=== PATIENT | female | born 1980 | race Caucasian/White ===

== ENCOUNTER → 2018-05-12 14:23 | Outpatient (CLI) | payer OTHER, SELFPAY ==
--- NOTE | 2018-05-12 14:35 | US_ITS ---
HISTORY: IUD CHECK TECHNIQUE: Transvaginal pelvic ultrasound was performed. Grayscale, spectral and color flow Doppler evaluation of the adnexa. COMPARISON: None FINDINGS: The uterus is anteverted and appears normal in size measuring 9.4 x 4.9 x 5.6 cm in longitudinal, AP, and transverse dimensions. The uterine myometrium is unremarkable. IUD in place which appears in appropriate position. No endometrial thickening. The right ovary is enlarged secondary to a circumscribed cyst which measures approximately 4.4 x 4.2 cm. Right ovarian vascular flow. The right ovary in total measures approximately 5.1 x 4.4 x 4.5 cm. The left ovary appears normal in size measuring 3.7 x 2.3 x 1.3 cm and shows small follicular cysts. Ovarian flow in the left Small free pelvic fluid. US/Transvaginal Non- IMPRESSION: 1. Normal uterus. The IUD appears in good position. 2. Enlargement of the right ovary secondary to a 4.4 cm circumscribed cyst. Note that ovarian cysts of this size will not typically resolve spontaneously. 3. Normal left ovary. 4. Small free pelvic fluid. at 0223 Reported and signed by: Toñito Torres MD Electronically Signed: Toñito Torres, at 2:21 EST Tel , Service support ,
--- OUTSIDE RECORDS SUMMARY | 2018-07-07 14:01 | XMS RPT_ITS ---
:1980 Author Organization [facility] Care Team Providers Name Role Phone KEYA NOEL Attending Unavailable KEYA NOEL Referring Unavailable Homero Gilliland Primary Care Unavailable PROBLEMS PROBLEMS No Problem Records FoundPROCEDURES PROCEDURES No Procedure Records FoundRESULTS RESULTS TRANSVAGINAL Observed: 05/12/2018 Status: F Source: KIKA NON- 2:36 PM [facility] REPOSITORY [facility] Imaging Services [address] [place] [address] Transvaginal Non- MR#: [id number] Acct: [id number] Name: WILLA ELIAS Rep #: [id number] : 1980 F 37 From: Toñito Torres MD PCP: Homero Gilliland DO Status: REG CLI Study: Transvaginal Non- Date of Exam: 05/12/18 Exam# [id number] Ordering Dr: Keya Noel HISTORY: IUD CHECK TECHNIQUE: Transvaginal pelvic ultrasound was performed. Grayscale, spectral and color flow Doppler evaluation of the adnexa. COMPARISON: None FINDINGS: The uterus is anteverted and appears normal in size measuring 9.4 x 4.9 x 5.6 cm in longitudinal, AP, and transverse dimensions. The uterine myometrium is unremarkable. IUD in place which appears in appropriate position. No endometrial thickening. The right ovary is enlarged secondary to a circumscribed cyst which measures approximately 4.4 x 4.2 cm. Right ovarian vascular flow. The right ovary in total measures approximately 5.1 x 4.4 x 4.5 cm. The left ovary appears normal in size measuring 3.7 x 2.3 x 1.3 cm and shows small follicular cysts. Ovarian flow in the left Small free pelvic fluid. US/Transvaginal Non- IMPRESSION: 1. Normal uterus. The IUD appears in good position. 2. Enlargement of the right ovary secondary to a 4.4 cm circumscribed cyst. Note that ovarian cysts of this size will not typically resolve spontaneously. 3. Normal left ovary. 4. Small free pelvic fluid. at 0223 Reported and signed by: Toñito Torres MD Electronically Signed: Toñito Torres, at 2:21 EST Tel , Service support , CC: KEYA NOEL; Homero Gilliland DO [employer] Installer: Signed ALLERGIES ALLERGIES No Allergies Records FoundENCOUNTERS ENCOUNTERS ADMIT/DISCHARGE ACCOUNT ADMITTING ENCOUNTER LOCATION SOURCE NUMBER CLASS 05/12/2018 [id number] Ambulatory Kika Kika 2 [facility] ing:US Repository PAYERS PAYERS ENCOUNTER GUARANTOR PAYER SUBSCRIBER SOURCE 05/12/2018 WILLA ELIAS903 Primary SAGE CALDERON Insurance:[facility] BIRDDOB: [facility] [id number] [id number] [address]Eus: [phone] Number: Repository [phone] () [id number] Date:[id number] [address]GL: 05/12/2018 Secondary NOT GIVENUNK Kika Insurance:SELF PAY [facility] Number: Effective Repository Date:2018-05-12
== END ==
PROVIDERS: Family Provider Family Medicine; PCP Family Medicine; Referring Provider Internal Medicine Gastroenterology; Visit Provider Internal Medicine Gastroenterology
DX: T83.32XD Displacement of intrauterine contraceptive device, subsequent encounter (principal); R10.2 Pelvic and perineal pain; N39.0 Urinary tract infection, site not specified
CPT/HCPCS: 76830; 93976

== ENCOUNTER → 2021-01-13 17:00 | Outpatient (CLI) | payer OTHER, SELFPAY ==
--- NOTE | 2021-01-13 16:39 | BI_ITS ---
MAMMOGRAPHY - BILATERAL SCREENING REASON FOR EXAM: Female, 40 years old. Routine annual screening examination. PERTINENT HISTORY: TECHNIQUE: Digital bilateral breast laura (3D mammographic acquisition) in the CC and MLO projections. 2-D mediolateral oblique (MLO) and craniocaudad (CC) views of both breasts were obtained. CAD: Full Field Digital Mammography with Computer Added Detection was performed. COMPARISON: Previous mammogram obtained on 10/23/2014 FINDINGS: Breast Composition: Dense There are no dominant masses or suspicious calcifications. No other significant abnormalities are identified. BI/SCRN MAMM (CAD)W/LAURA BILAT IMPRESSION: Stable bilateral screening mammogram. Yearly follow-up mammogram recommended. (A) ASSESSMENT CATEGORY: BIRADS Category 1: Negative. A letter regarding these results will be sent to the patient by the facility within 30 days. Approximately 10% of breast cancers are not detected by mammography. A normal mammogram should not delay biopsy of a clinically suspicious abnormality. [id number] Electronically Signed: Alex Gonzalez DO at 15:30 EDT Tel , Service support ,
== END ==
PROVIDERS: PCP Family Medicine; Referring Provider Family Medicine; Visit Provider Family Medicine
DX: Z12.31 Encounter for screening mammogram for malignant neoplasm of breast (principal)
CPT/HCPCS: 77063; 77067

== ENCOUNTER → 2021-03-24 09:28 | Outpatient (CLI) | payer OTHER, SELFPAY ==
--- NOTE | 2021-03-24 09:33 | US_ITS ---
STUDY: ULTRASOUND BREAST - LEFT REASON FOR EXAM: Female, 40 years old. Palpable lump left breast. TECHNIQUE: Axial and longitudinal images of the LEFT breast were performed with a high resolution ultrasound transducer. # OF IMAGES: 9 COMPARISON: Comparison is made with prior mammogram dated 01/13/2021. FINDINGS: LEFT Breast: The upper portion of the left breast was examined by ultrasound. There is evidence of dense fibroglandular tissue. No solid or cystic mass lesion is seen. US/Breast Limited Unilateral IMPRESSION: Dense fibroglandular tissue. No sonographic abnormality is seen. ASSESSMENT CATEGORY: BIRADS Category 1: Negative. A letter regarding these results will be sent to the patient by the facility within 30 days. Electronically Signed: Newton Funes MD at 10:52 EDT , Service support ,
== END ==
PROVIDERS: PCP Family Medicine; Referring Provider Obstetrics & Gynecology; Visit Provider Obstetrics & Gynecology
DX: N63.20 Unspecified lump in the left breast, unspecified quadrant (principal)
CPT/HCPCS: 76642

== ENCOUNTER → 2022-01-14 | Outpatient (CLI) | payer OTHER, SELFPAY ==
--- NOTE | 2022-01-14 09:05 | BI_ITS ---
MAMMOGRAPHY - BILATERAL SCREENING 3-D TOMOSYNTHESIS REASON FOR EXAM: Female, 41 years old. Annual screening mammogram. PERTINENT HISTORY: No significant family history. TECHNIQUE: 2-D mammograms and 3-D Tomosynthesis of the breast (s) were performed. CAD was performed. COMPARISON: 01/13/2021, 10/23/2014. FINDINGS: The breast composition is heterogeneously dense that can obscure small breast masses. Stable scattered benign calcifications bilaterally. No dense spiculated masses or suspicious microcalcifications are identified. No architectural distortion is identified. There is no skin thickening or retraction. BI/SCRN MAMM (CAD)W/LAURA BILAT IMPRESSION: No interval change and no mammographic signs of malignancy. Routine yearly mammograms recommended. ASSESSMENT CATEGORY: BIRADS Category 2: Benign. A letter regarding these results will be sent to the patient by the facility within 30 days. FOLLOW UP RECOMMENDATION: Yearly follow up mammogram recommended. (A) Approximately 10% of breast cancers are not detected by mammography. A normal mammogram should not delay biopsy of a clinically suspicious abnormality. Electronically Signed: Bernard Grande MD at 15:28 EDT ,
== END | disposition home or self-care (01) ==
LOC: OPBI 09:04
PROVIDERS: PCP Family Medicine; Referring Provider Obstetrics & Gynecology; Visit Provider Obstetrics & Gynecology
DX: Z12.31 Encounter for screening mammogram for malignant neoplasm of breast (principal)
CPT/HCPCS: 77063; 77067

== ENCOUNTER → 2023-02-04 | Outpatient (CLI) | payer OTHER, SELFPAY ==
--- NOTE | 2023-02-04 10:05 | BI_ITS ---
MAMMOGRAPHY - BILATERAL SCREENING REASON FOR EXAM: Female, 42 years old. Routine annual screening examination. PERTINENT HISTORY: Non-contributory. TECHNIQUE: Digital bilateral breast laura (3D mammographic acquisition) in the CC and MLO projections. 2-D mediolateral oblique (MLO) and craniocaudad (CC) views of both breasts were obtained. CAD: Full Field Digital Mammography with Computer Added Detection was performed. COMPARISON: Comparison is made with prior study dated January 14, 2022 and January 13, 2021. FINDINGS: Breast Composition: The breasts are heterogeneously dense, which may obscure small masses. There is a 1 cm x 1.3 cm well-defined nodule in the upper lateral aspect of the left breast. Correlation with ultrasound is recommended. No other significant abnormalities are identified. BI/SCRN MAMM (CAD)W/LAURA BILAT IMPRESSION: 1 cm x 1.3 cm well-defined nodule in the upper lateral aspect of the left breast. Correlation with ultrasound is recommended. ASSESSMENT CATEGORY: BIRADS Category 0: Incomplete. Need additional imaging evaluation. A letter regarding these results will be sent to the patient by the facility within 30 days. Approximately 10% of breast cancers are not detected by mammography. A normal mammogram should not delay biopsy of a clinically suspicious abnormality. [id number] Electronically Signed: Newton Funes MD at 9:58 EDT ,
== END | disposition home or self-care (01) ==
LOC: OPBI 10:02
PROVIDERS: PCP Family Medicine; Referring Provider Obstetrics & Gynecology; Visit Provider Obstetrics & Gynecology
DX: Z12.31 Encounter for screening mammogram for malignant neoplasm of breast (principal)
CPT/HCPCS: 77063; 77067

== ENCOUNTER → 2023-02-16 | Outpatient (CLI) | payer OTHER, SELFPAY ==
--- NOTE | 2023-02-16 07:43 | US_ITS ---
STUDY: ULTRASOUND BREAST - LEFT REASON FOR EXAM: Female, 42 years old. Abnormal screening mammogram. TECHNIQUE: Axial and longitudinal images of the LEFT breast were performed with a high resolution ultrasound transducer. # OF IMAGES: 24 COMPARISON: Comparison is made with prior mammogram dated February 04, 2023. FINDINGS: LEFT Breast: The mammographic abnormality corresponds to a 1 cm x 0.9 cm x 0.6 cm cyst at the 12:00 position of the breast at 2 cm from the nipple. US/Breast Limited Unilateral IMPRESSION: The mammographic abnormality corresponds to a 1 cm x 0.9 cm x 0.6 cm cyst at the 12:00 position of the breast at 2 cm from the nipple. ASSESSMENT CATEGORY: BIRADS Category 2: Benign. A letter regarding these results will be sent to the patient by the facility within 30 days. Electronically Signed: Newton Funes MD at 9:49 EDT ,
== END | disposition home or self-care (01) ==
LOC: OPUS 07:40
PROVIDERS: PCP Family Medicine; Referring Provider Obstetrics & Gynecology; Visit Provider Obstetrics & Gynecology
DX: R92.8 Other abnormal and inconclusive findings on diagnostic imaging of breast (principal)
CPT/HCPCS: 76642

== ENCOUNTER → 2024-07-10 | Outpatient (CLI) | payer OTHER, SELFPAY ==
--- NOTE | 2024-07-10 13:11 | BI_ITS ---
PROCEDURE: SCRN MAMM (CAD)W/LAURA BILAT REASON FOR EXAM: F, Age 43 y/o, routine annual mammogram. TECHNIQUE: Bilateral screening digital breast tomosynthesis with 2D and 3D images. Computer aided detection. COMPARISON: Prior exam(s) dating back to prior mammogram dated February 04, 2023.. FINDINGS: The breasts are extremely dense which lowers the sensitivity of mammography. There is a 1.6 cm by 1.3 cm well-defined nodule in the central depth of the left breast. This was de monstrated to be a cyst on prior sonogram. BI/SCRN MAMM (CAD)W/LAURA BILAT IMPRESSION: BI-RADS 2: BENIGN. RECOMMEND ANNUAL MAMMOGRAPHIC SCREENING. Follow-up code: Routine Follow-up The patient will be notified of the results by letter. Reading Location: [place] [address]
== END | disposition home or self-care (01) ==
LOC: OPBI 13:10
PROVIDERS: PCP Family Medicine; Referring Provider Obstetrics & Gynecology; Visit Provider Obstetrics & Gynecology
DX: Z12.31 Encounter for screening mammogram for malignant neoplasm of breast (principal)
CPT/HCPCS: 77063; 77067